=== PATIENT | male | born 1950 ===

== ENCOUNTER 2017-12-12 08:57 | Observation (INO) | payer OTHER, MEDICARE ==
[2017-12-12] MEDS ORDERED: NITROGLYCERIN (SL) 0.4 MG TAB SL ×2 (09:00→12:00)
[2017-12-12] MEDS: NITROGLYCERIN 2% 1 GM OINT PKT TD (09:13)
[2017-12-12 09:14] LABS: ADD MAN DIFF? NO
[2017-12-12 09:15] LABS: WHITE BLOOD COUNT 6.3 10^3/ul (4.8-10.8)
[2017-12-12 09:15] LABS: BASOPHILS % 0.5 % (0.0-2.0); EOSINOPHILS # 0.1 10^3/ul (0.0-0.5); EOSINOPHILS % 0.8 % (0.0-7.0); HEMATOCRIT 42.2 % (42.0-52.0); HEMOGLOBIN 14.4 g/dl (14.0-18.0); LYMPHOCYTES # 0.8 10^3/ul (0.8-2.9); LYMPHOCYTES % 12.9 % (15.0-51.0); MEAN CORPUSCULAR HEMOGLOBIN 29.1 pg (29.0-33.0); MEAN CORPUSCULAR HGB CONC 34.1 g/dl (32.0-37.0); MEAN CORPUSCULAR VOLUME 85.3 fl (82.0-101.0); MEAN PLATELET VOLUME 9.7 fl (7.4-10.4); MONOCYTE # 0.4 10^3/ul (0.3-0.9); MONOCYTES % 6.4 % (0.0-11.0); NEUTROPHILS % 78.9 % (39.0-77.0); PLATELET COUNT 171 10^3/UL (140-415); RED BLOOD COUNT 4.95 10^6/ul (4.70-6.10); RED CELL DISTRIBUTION WIDTH 12.9 % (11.5-14.5)
[2017-12-12 09:38] LABS: ANION GAP 15 (8-16); BLOOD UREA NITROGEN 22 mg/dl (7-20); CALCIUM 8.9 mg/dl (8.4-10.2); CARBON DIOXIDE 22 mmol/L (21-31); CHLORIDE 109 mmol/L (97-110); CREATININE 0.96 mg/dl (0.61-1.24); GLUCOSE 155 mg/dl (70-220); POTASSIUM 3.8 mmol/L (3.5-5.1); SODIUM 142 mmol/L (135-144)
[2017-12-12 09:48] LABS: TROPONIN-I 0.011 ng/ml (0.000-0.120)
[2017-12-12] MEDS ORDERED: ACETAMINOPHEN 325 MG TAB PO (11:30)
[2017-12-12] MEDS ORDERED: ONDANSETRON 4 MG INJ IV (11:30)
[2017-12-12] MEDS ORDERED: morphine 2 MG INJ IV (12:00)
[2017-12-12] MEDS ORDERED: NACL 0.9% 3 ML SYG IV (12:00)
[2017-12-12] MEDS: ONDANSETRON 4 MG INJ IV (13:02)
[2017-12-12 13:51] LABS: CHOLESTEROL 195 mg/dl (100-200)
[2017-12-12 13:51] LABS: CHOL/HDL RATIO 4.6 RATIO; HDL CHOLESTEROL 42 mg/dl (30-78); LDL CHOLESTEROL,CALCULATED 118 mg/dl; TRIGLYCERIDES 174 mg/dl (0-149)
[2017-12-12 13:56] LABS: HEMOGLOBIN A1C 5.4 % (0-5.9)
[2017-12-12] MEDS: SOD CHLORIDE 0.9% 500 ML IV (14:14)
[2017-12-12] MEDS: IBUPROFEN 600 MG TAB PO (14:14)
[2017-12-12 14:59] LABS: CREATINE KINASE 134 IU/L (23-200)
[2017-12-12 15:48] LABS: CK INDEX 2.7
[2017-12-12 15:49] LABS: CK-MB 3.65 ng/ml (0.0-2.4)
[2017-12-12 15:52] LABS: TROPONIN-I 0.419 ng/ml (0.000-0.120)
[2017-12-12] MEDS: ACET/BUTAL/CAFF TAB PO (16:36)
[2017-12-12] MEDS: ENOXAPARIN 100 MG/ML SYG SC (16:42)
[2017-12-12] MEDS: AL HYDROX/MG HYDROX/SIMETH 30 ML CUP PO (19:55)
[2017-12-12] MEDS: CALCIUM CARBONATE 500 MG CHEW TAB PO (20:06)
[2017-12-12] MEDS: ATORVASTATIN 10 MG TAB PO (20:24)
[2017-12-12] MEDS: HYDROCODONE/APAP (5/325) TAB PO (20:24)
[2017-12-12] MEDS: ISOSORBIDE DINITRATE 10 MG TAB PO (20:25)
[2017-12-12] MEDS: DOCUSATE SODIUM 100 MG CAP PO (20:25)
[2017-12-12 23:18] LABS: CREATINE KINASE 179 IU/L (23-200)
[2017-12-12 23:30] LABS: CK INDEX 3.6; CK-MB 6.43 ng/ml (0.0-2.4)
[2017-12-13] MEDS: ACETAMINOPHEN 325 MG TAB PO ×4 (00:21→21:02)
[2017-12-13] MEDS: ENOXAPARIN 100 MG/ML SYG SC ×3 (00:22→23:29)
[2017-12-13] MEDS: LORAZEPAM 2 MG INJ IV (00:22)
[2017-12-13] MEDS: PANTOPRAZOLE (EC) 40 MG TAB PO (06:00)
[2017-12-13 07:19] LABS: ADD MAN DIFF? NO
[2017-12-13 07:29] LABS: BASOPHILS % 0.2 % (0.0-2.0); EOSINOPHILS % 0.4 % (0.0-7.0); HEMATOCRIT 38.9 % (42.0-52.0); HEMOGLOBIN 13.1 g/dl (14.0-18.0); LYMPHOCYTES # 1.2 10^3/ul (0.8-2.9); LYMPHOCYTES % 10.8 % (15.0-51.0); MEAN CORPUSCULAR HEMOGLOBIN 28.9 pg (29.0-33.0); MEAN CORPUSCULAR HGB CONC 33.7 g/dl (32.0-37.0); MEAN CORPUSCULAR VOLUME 85.9 fl (82.0-101.0); MEAN PLATELET VOLUME 10.4 fl (7.4-10.4); MONOCYTES % 9.1 % (0.0-11.0); NEUTROPHIL # 8.6 10^3/ul (1.6-7.5); NEUTROPHILS % 79.1 % (39.0-77.0); PLATELET COUNT 167 10^3/UL (140-415); RED BLOOD COUNT 4.53 10^6/ul (4.70-6.10); RED CELL DISTRIBUTION WIDTH 13.2 % (11.5-14.5)
[2017-12-13 07:29] LABS: WHITE BLOOD COUNT 10.8 10^3/ul (4.8-10.8)
[2017-12-13 07:41] LABS: INR 1.07; PT RATIO 1.1
[2017-12-13 07:42] LABS: PARTIAL THROMBOPLASTIN TIME 34.3 Sec (25.0-35.0)
[2017-12-13 08:01] LABS: CK-MB 7.69 ng/ml (0.0-2.4)
[2017-12-13 08:02] LABS: ALBUMIN 3.6 g/dl (3.3-4.9); ANION GAP 13 (8-16); BLOOD UREA NITROGEN 26 mg/dl (7-20); CALCIUM 8.7 mg/dl (8.4-10.2); CARBON DIOXIDE 24 mmol/L (21-31); CHLORIDE 107 mmol/L (97-110); CREATININE 0.97 mg/dl (0.61-1.24); GLUCOSE 103 mg/dl (70-220); MAGNESIUM 2.2 mg/dl (1.7-2.5); PHOSPHORUS 2.8 mg/dl (2.5-4.9); POTASSIUM 3.8 mmol/L (3.5-5.1); SODIUM 140 mmol/L (135-144)
[2017-12-13 08:09] LABS: ANION GAP 13 (8-16); BLOOD UREA NITROGEN 27 mg/dl (7-20); CALCIUM 8.6 mg/dl (8.4-10.2); CARBON DIOXIDE 24 mmol/L (21-31); CHLORIDE 107 mmol/L (97-110); CK INDEX 4.2; CREATINE KINASE 182 IU/L (23-200); CREATININE 0.95 mg/dl (0.61-1.24); GLUCOSE 107 mg/dl (70-220); POTASSIUM 3.7 mmol/L (3.5-5.1); SODIUM 140 mmol/L (135-144)
[2017-12-13] MEDS: CALCIUM CARBONATE 500 MG CHEW TAB PO ×3 (08:27→18:59)
[2017-12-13] MEDS: ISOSORBIDE DINITRATE 10 MG TAB PO ×3 (08:27→22:01)
[2017-12-13] MEDS: ASPIRIN 81 MG TAB PO (08:27)
[2017-12-13] MEDS: DIAZEPAM 5 MG TAB PO ×3 (08:36→08:42)
[2017-12-13] MEDS: DIPHENHYDRAMINE 50 MG CAP PO ×3 (08:36→08:41)
[2017-12-13] MEDS ORDERED: VERAPAMIL 5 MG INJ (08:38)
[2017-12-13] MEDS ORDERED: IODIXANOL LOCM 100 ML BTL ×3 (08:38→09:47)
[2017-12-13] MEDS ORDERED: NITROGLYCERIN (IC) 100 MCG/ML INJ (08:38)
[2017-12-13] MEDS ORDERED: LIDOCAINE 1% (MDV) 10 ML INJ (08:38)
[2017-12-13] MEDS ORDERED: HEPARIN 1000 UNITS/ML 10 ML INJ (08:38)
[2017-12-13] MEDS ORDERED: FENTAnyl 50 MCG/ML VIAL (08:50)
[2017-12-13] MEDS ORDERED: MIDAZOLAM 1 MG/ML 2 ML INJ (08:50)
[2017-12-13] MEDS ORDERED: CALCIUM CARBONATE 500 MG CHEW TAB PO (08:55)
[2017-12-13] MEDS ORDERED: ONDANSETRON 4 MG INJ IV (10:30)
[2017-12-13] MEDS ORDERED: AL HYDROX/MG HYDROX/SIMETH 30 ML CUP PO (10:30)
[2017-12-13] MEDS: SOD CHLORIDE 0.9% 1,000 ML IV (10:44)
[2017-12-13] MEDS: HYDROCODONE/APAP (5/325) TAB PO (11:24)
[2017-12-13] MEDS ORDERED: morphine 10 MG INJ (12:08)
[2017-12-13] MEDS: morphine LIQ (10 MG/5 ML) CUP PO (12:09)
[2017-12-13] MEDS: ONDANSETRON 4 MG INJ IV (12:17)
[2017-12-13 15:21] LABS: CREATINE KINASE 141 IU/L (23-200)
[2017-12-13 15:31] LABS: CK INDEX 3.6; CK-MB 5.06 ng/ml (0.0-2.4)
[2017-12-13] MEDS: METOPROLOL 25 MG TAB PO (21:00)
[2017-12-13] MEDS: ATORVASTATIN 10 MG TAB PO (21:01)
[2017-12-13] MEDS: MAGNESIUM HYDROXIDE 30ML CUP PO (22:54)
[2017-12-13] MEDS: BISACODYL 10 MG SUPP PR (23:25)
[2017-12-14] MEDS: morphine 2 MG INJ IV (01:08)
[2017-12-14] MEDS: PANTOPRAZOLE (EC) 40 MG TAB PO (05:43)
[2017-12-14 06:17] LABS: ADD MAN DIFF? NO
[2017-12-14 06:22] LABS: WHITE BLOOD COUNT 9.5 10^3/ul (4.8-10.8)
[2017-12-14 06:22] LABS: BASOPHILS % 0.3 % (0.0-2.0); EOSINOPHILS % 0.1 % (0.0-7.0); HEMATOCRIT 36.5 % (42.0-52.0); HEMOGLOBIN 12.6 g/dl (14.0-18.0); LYMPHOCYTES # 1.1 10^3/ul (0.8-2.9); LYMPHOCYTES % 11.1 % (15.0-51.0); MEAN CORPUSCULAR HEMOGLOBIN 29.9 pg (29.0-33.0); MEAN CORPUSCULAR HGB CONC 34.5 g/dl (32.0-37.0); MEAN CORPUSCULAR VOLUME 86.7 fl (82.0-101.0); MEAN PLATELET VOLUME 10.2 fl (7.4-10.4); MONOCYTE # 0.8 10^3/ul (0.3-0.9); MONOCYTES % 8.1 % (0.0-11.0); NEUTROPHIL # 7.6 10^3/ul (1.6-7.5); NEUTROPHILS % 80.2 % (39.0-77.0); PLATELET COUNT 143 10^3/UL (140-415); RED BLOOD COUNT 4.21 10^6/ul (4.70-6.10); RED CELL DISTRIBUTION WIDTH 12.9 % (11.5-14.5)
[2017-12-14 07:12] LABS: ALBUMIN 3.6 g/dl (3.3-4.9); ANION GAP 11 (8-16); BLOOD UREA NITROGEN 28 mg/dl (7-20); CALCIUM 8.7 mg/dl (8.4-10.2); CARBON DIOXIDE 27 mmol/L (21-31); CHLORIDE 107 mmol/L (97-110); CK-MB 2.35 ng/ml (0.0-2.4); CREATININE 0.92 mg/dl (0.61-1.24); GLUCOSE 102 mg/dl (70-220); MAGNESIUM 2.1 mg/dl (1.7-2.5); PHOSPHORUS 3.7 mg/dl (2.5-4.9); POTASSIUM 3.8 mmol/L (3.5-5.1); SODIUM 141 mmol/L (135-144)
[2017-12-14 07:19] LABS: TROPONIN-I 0.741 ng/ml (0.000-0.120)
[2017-12-14 07:27] LABS: CK INDEX 2.2; CREATINE KINASE 108 IU/L (23-200)
[2017-12-14] MEDS: CALCIUM CARBONATE 500 MG CHEW TAB PO ×2 (09:00→12:42)
[2017-12-14] MEDS: ASPIRIN 81 MG TAB PO (09:00)
[2017-12-14] MEDS: METOPROLOL 25 MG TAB PO (09:01)
[2017-12-14] MEDS: ISOSORBIDE DINITRATE 10 MG TAB PO ×2 (09:01→12:42)
[2017-12-14] MEDS: ACETAMINOPHEN 325 MG TAB PO (12:42)
[2017-12-14] MEDS: ENOXAPARIN 100 MG/ML SYG SC (12:47)
== END 2017-12-14 15:50 | disposition home or self-care (01) ==
LOC: E/R 08:57 → TEL 11:11
DX: I21.4 Non-ST elevation (NSTEMI) myocardial infarction (principal); E78.5 Hyperlipidemia, unspecified; R94.39 Abnormal result of other cardiovascular function study; I25.10 Atherosclerotic heart disease of native coronary artery without angina pectoris; I34.0 Nonrheumatic mitral (valve) insufficiency; Z79.82 Long term (current) use of aspirin
CPT/HCPCS: 36415; 71045; 80048; 80061; 80069; 82550; 82553; 83036; 83735; 84443; 84484; 85025; 85610; 85730; 93005; 93306; 93458; 99285-25; G0378